=== PATIENT | female | born 1980 | race Caucasian/White ===

== ENCOUNTER → 2020-12-21 08:37 | Outpatient (CLI) | payer OTHER, SELFPAY ==
[2020-12-21 11:06] LABS: HCG,Quantitative 100290 mIU/ml (0-5.42)
== END ==
PROVIDERS: Visit Provider Nurse Practitioner Obstetrics & Gynecology
DX: Z34.90 Encounter for supervision of normal pregnancy, unspecified, unspecified trimester (principal)
CPT/HCPCS: 36415; 84702

== ENCOUNTER → 2020-12-24 12:12 | Outpatient (CLI) | payer OTHER, SELFPAY ==
--- NOTE | 2020-12-24 12:43 | US_ITS ---
PROCEDURE: US OB <= 14 WEEKS FETUS CLINICAL INDICATION: US OB DATES COMPARISON: No exams were available for comparison FINDINGS: An intrauterine gestational sac is present with a pole with a crown-rump length of 1.14cm correlating to gestational age of 7weeks 3days. heart tones are present with an FHR of 151bpm. Yolk sac is noted. Along the left aspect of the gestational sac there is a small area of decreased echogenicity at approximately 1 cm and could be due to a small subchorionic hemorrhage. Along the posterior aspect of the uterus there is a 19 mm area of decreased echogenicity and may be due to the small fibroid. Additional small hypoechoic area noted along the lower body of the anterior aspect of the uterus measuring 10 mm and may be due to small fibroid. There is a 2.8 cm right ovarian cyst IMPRESSION: Live IUP at 7 weeks 3 days. Estimated due date by Ultrasound is 08/09/2021 Possible small area of subchorionic hemorrhage with other nonacute findings as described above. Follow-up may confirm stability. Dictated by: Jeremie Muir MD 12/24/2020 16:15 Jeremie Muir MD in [place] 12/24/2020 16:15
[2020-12-24 12:52] LABS: Basophils % 0.3 % (0.1-2.0); Eosinophils % 0.3 % (0.1-12.0); Hematocrit 39.5 % (37.0-47.0); Hemoglobin 13.4 g/dL (12.2-16.2); Lymphocytes # 1.8 K/mm3 (0.7-4.5); Lymphocytes % 19.6 % (10-50); Mean Corpuscular HGB Conc 33.8 g/dL (31.8-35.4); Mean Corpuscular Hemoglobin 30.3 pg (27.0-31.2); Mean Corpuscular Volume 89.6 fl (81-99); Mean Platelet Volume 8.1 fl (7.4-10.4); Monocytes # 0.6 K/mm3 (0.1-1.0); Neutrophils # 6.8 K/mm3 (1.8-7.8); Neutrophils % 73.7 % (37.0-80.0); Platelet Count 290 K/mm3 (142-424); Red Blood Count 4.41 M/mm3 (4.20-5.40); Red Cell Distribution Width 13.6 % (11.5-17.5); White Blood Count 9.2 K/mm3 (4.8-10.8)
[2020-12-26 12:49] LABS: HIV Screen 4th Generation wRfx Non Reactive (Non Reactive); Rubella Antibodies, IgG 9.14 index (Immune >0.99)
[2020-12-26 12:50] LABS: Hepatitis B Surface Antigen Negative (Negative); Hepatitis C Antibody <0.1 s/co ratio (0.0-0.9); Rapid Plasma Reagin Ab Titer Non Reactive (NonRea<1:1)
== END ==
PROVIDERS: PCP Internal Medicine; Visit Provider Nurse Practitioner Obstetrics & Gynecology
DX: Z34.90 Encounter for supervision of normal pregnancy, unspecified, unspecified trimester (principal); O26.841 Uterine size-date discrepancy, first trimester
CPT/HCPCS: 36415; 76801; 85025; 86592; 86703; 86762; 86850; 87340; 87380; G0432

== ENCOUNTER → 2021-01-23 09:05 | Outpatient (CLI) | payer OTHER, SELFPAY | PROVIDERS: Visit Provider Nurse Practitioner Obstetrics & Gynecology | DX: Z31.430 Encounter of female for testing for genetic disease carrier status for procreative management (principal); Z36.0 Encounter for antenatal screening for chromosomal anomalies; Q28.3 Other malformations of cerebral vessels | CPT/HCPCS: 36415 ==

== ENCOUNTER → 2021-03-25 08:46 | Outpatient (CLI) | payer OTHER, SELFPAY ==
--- NOTE | 2021-03-25 08:57 | US_ITS ---
PROCEDURE: US OB /MATERNAL DETAIL CLINICAL INDICATION: 20 week gestation Anatomy exam COMPARISON: US US OB <= 14 WEEKS FETUS from 12/24/2020 FINDINGS: There is a single live fetus present which is in breech presentation. The cervix is closed measuring 4 cm. heart and body motion noted. The placenta is posterior with an anterior accessory and grade 1. Complete survey performed and was unremarkable on the submitted images as in PACS. No discrete anomalies identified on survey imaging by technologist. Active fetus. Three-vessel cord with satisfactory umbilical cord insertion. 4- chamber heart noted. Survey of brain & ventricles Unremarkable. Face and neck survey unremarkable. Diaphragm and chest views unremarkable. Abdomen: Both kidneys noted and unremarkable. Stomach noted and satisfactory. Spine: Survey of the spine satisfactory with no anomalies identified nor imaged. Both arms and legs noted. Amniotic Fluid: Adequate. Maternal adnexa: No significant findings. Measurements: Average ultrasound age 20weeks 2days. Gestational Age 20weeks 2days Estimated due date by ultrasound age 1208/10/2021. Estimated weight 352g BPD = 20weeks 1day OFD = 20weeks 1day HC = 19weeks 3days AC = 20weeks 3days FL = 20weeks 6days Growth Percentile= 44% Heart Rate = 149bpm Cerebellum = 20weeks 2days Humerus = 20weeks 3days HC/AC is 1.1 CI is 0.79 FL/BPD is 0.73 FL/AC is 0.22 IMPRESSION: Live IUP with an average ultrasound age of 20 weeks 2 days. Breech position. No obvious anomalies. Please see above for detail. Dictated by: Jeremie Muir MD 03/25/2021 15:30 Jeremie Muir MD in OV 03/25/2021 15:30
== END ==
PROVIDERS: PCP Internal Medicine; Visit Provider Nurse Practitioner Obstetrics & Gynecology
DX: Z34.90 Encounter for supervision of normal pregnancy, unspecified, unspecified trimester (principal); Z3A.20 20 weeks gestation of pregnancy
CPT/HCPCS: 76811

== ENCOUNTER → 2021-04-24 08:20 | Outpatient (CLI) | payer OTHER, SELFPAY ==
[2021-04-24 08:58] LABS: Glucose,Fasting 94 mg/dl (74-100)
[2021-04-24 10:33] LABS: Glucose 1 Hour 174 mg/dL (74-100)
== END ==
PROVIDERS: Visit Provider Nurse Practitioner Obstetrics & Gynecology
DX: Z34.90 Encounter for supervision of normal pregnancy, unspecified, unspecified trimester (principal)
CPT/HCPCS: 36415; 82951

== ENCOUNTER → 2021-05-10 09:56 | Outpatient (CLI) | payer SELFPAY ==
[2021-05-10 10:43] LABS: Glucose,Fasting 89 mg/dl (74-100)
[2021-05-10 12:03] LABS: Glucose 1 Hour 110 mg/dL (74-100)
[2021-05-10 13:37] LABS: Glucose 2 Hour 215 mg/dL (74-100)
[2021-05-10 14:35] LABS: Glucose 3 Hour 152 mg/dL (74-100)
== END ==
PROVIDERS: Visit Provider Nurse Practitioner Obstetrics & Gynecology
DX: Z34.90 Encounter for supervision of normal pregnancy, unspecified, unspecified trimester (principal)
CPT/HCPCS: 36415; 82951

== ENCOUNTER → 2021-07-09 18:29 | Outpatient (CLI) | payer OTHER, SELFPAY | PROVIDERS: Visit Provider Nurse Practitioner Obstetrics & Gynecology | DX: Z34.90 Encounter for supervision of normal pregnancy, unspecified, unspecified trimester (principal) | CPT/HCPCS: 86403 ==

== ENCOUNTER → 2021-07-26 12:32 | Outpatient (CLI) | payer OTHER, SELFPAY | PROVIDERS: Visit Provider Nurse Practitioner Obstetrics & Gynecology | DX: Z01.812 Encounter for preprocedural laboratory examination (principal); Z20.822 Contact with and (suspected) exposure to COVID-19 | CPT/HCPCS: C9803; U0003; U0005 ==

== ENCOUNTER 2021-07-27 17:11 | Inpatient (IN) | payer OTHER, SELFPAY ==
[2021-07-27 17:18] VITALS: BMI 35.7
[2021-07-27 17:20] VITALS: BP 146/73; PULSE 97; RESP 18; TEMP 36.6; O2SAT 99
[2021-07-27 17:36] LABS: Microscopic, Urine URINE MICROSCOPIC (MICROSCOPIC)
[2021-07-27 18:04] LABS: Coronavirus 19, PCR Not Detected (NotDetected); Influenza A, PCR Not Detected (NotDetected); Influenza B, PCR Not Detected (NotDetected)
[2021-07-27 18:05] LABS: Basophils # 0.1 K/mm3 (0-0.2); Basophils % 0.7 % (0.1-2.0); Eosinophils # 0.1 K/mm3 (0.0-0.4); Hematocrit 33.7 % (37.0-47.0); Hemoglobin 11.6 g/dL (12.2-16.2); Lymphocytes # 2.1 K/mm3 (0.7-4.5); Lymphocytes % 26.7 % (10-50); Mean Corpuscular HGB Conc 34.4 g/dL (31.8-35.4); Mean Corpuscular Hemoglobin 31.3 pg (27.0-31.2); Mean Corpuscular Volume 90.9 fl (81-99); Mean Platelet Volume 9.1 fl (7.4-10.4); Monocytes # 0.6 K/mm3 (0.1-1.0); Monocytes % 7.6 % (1.7-9.3); Platelet Count 197 K/mm3 (142-424); Red Blood Count 3.71 M/mm3 (4.20-5.40); Red Cell Distribution Width 14.6 % (11.5-17.5); White Blood Count 7.9 K/mm3 (4.8-10.8)
[2021-07-27 18:10] LABS: Anion Gap 10.8 mEq/L (5-15); Blood Urea Nitrogen 11 mg/dl (7-17); Calcium 9.4 mg/dl (8.4-10.2); Carbon Dioxide 21 mmol/L (22.0-30.0); Chloride 105 mmol/L (98-107); Creatinine Clearance Estimated 147 mL/min (50-200); Estimated Glomerular Filt Rate 80 ml/min (>60); GFR (African American) 97 ML/MIN (>60); Glucose 77 mg/dl (74-100); Potassium 3.8 mmoL/L (3.5-5.1); Sodium 133 mmol/L (136-145)
[2021-07-27 18:38] VITALS: BP 146/73; PULSE 97; RESP 18; TEMP 36.6; O2SAT 99; BMI 35.7
[2021-07-27 18:40] LABS: Appearance,Urine CLOUDY (Clear); Bilirubin,Urine Negative (Negative); Blood, Urine Negative (Negative); Color,Urine YELLOW (Yellow); Glucose,Urine (UA) Negative (Negative); Ketones,Urine Negative (Negative); Leukocyte Esterase,Urine 1+ (Negative); Nitrate,Urine Negative (Negative); Protein,Urine Negative (Negative); Urobilinogen,Urine 0.2 EU/dl (0.2)
[2021-07-27 18:47] LABS: Amorphous Sediment,Urine 2+ /lpf; Squamous Epithelial Cell,Urine 50-100 #/hpf (0-5); WBC,Urine Occasional #/hpf (0-3)
[2021-07-27 18:51] LABS: Barbiturates Screen,Urine Negative ng/ml (<200); Benzodiazepines Screen,Urine Negative ng/ml (<200)
[2021-07-27 18:52] LABS: Amphetamine/Metha Screen,Urine Negative ng/ml (<1000)
[2021-07-27 18:53] LABS: Cannabinoid Screen,Urine Negative ng/ml (<50); Cocaine Screen,Urine Negative ng/ml (<300)
[2021-07-27 18:54] LABS: Methadone Screen,Urine Negative ng/ml (<300); Opiate Screen,Urine Negative ng/ml (<300)
[2021-07-27 18:55] LABS: Phencyclidine Screen,Urine Negative ng/ml (<25)
[2021-07-27 20:17] VITALS: BP 116/68; PULSE 90; RESP 18; TEMP 37; O2SAT 97
[2021-07-28] VITALS (14 sets, daily range): BP systolic 116–150; BP diastolic 62–88; PULSE 72–98; RESP 14–20; TEMP 36.4–36.8; O2SAT 96–100
--- NOTE | 2021-07-28 08:48 | HMH.OBAPHP ---
OB - H&P: HPI Antepartum - History of Present Illness Chief complaint: Gestational diabetes, advanced maternal age History of present illness: She is a 40-year-old 1 para 0 at 38+5 weeks gestational age. She has been followed for gestational diabetes and has been seen at [facility]. It was recommended by them that she deliver at 38 weeks. As result of that we have brought her in for induction of labor at term. - History of Present Criteria for establishing EDC:: LMP confirmed by 1st trimester US care: good care Ultrasounds: normal 1st trimester US, normal mid trimester US Obstetrical complications: gestational diabetes, other [facility] History I have reviewed the patient's past medical history: Yes *Have you ever received a pneumonia vaccine?: No *Have you received a flu vaccine this season?: Yes Other Medical History: Reports: Arthritis Other Surgeries: Yes: Other. No: Amputation: No Fractures: No - *Social History Smoking Status: Never smoker Alcohol Intake: never Alcohol Intake Frequency:: other Substance Use Type: denies use *Occupational Status:: unemployed *Travel in the last 8 weeks: None Family Hx:: No significant family history Para: 0 Review of Systems - Review of Systems Review of systems:: pertinent systems reviewed and negative unless documented below Meds Home Medications Medication Instructions Recorded Confirmed Type docosahexaenoic acid 200 mg capsule 200 mg PO DAILY 12/24/20 07/28/21 History polyethylene glycol 3350 17 gram 17 g PO DAILY 12/24/20 07/28/21 History oral powder packet prenat.vits,paige,[id number] 1 tab PO DAILY 12/24/20 07/28/21 History magnesium 250 mg tablet 250 mg PO DAILY 06/17/21 07/28/21 History Iron Polysaccharide Complex [Pro 180 mg PO BID 07/28/21 07/28/21 History Fe] Allergies Allergy/AdvReac Type Severity Reaction Status Date / Time shellfish derived Allergy Unknown Verified 07/24/21 09:28 OB - H&P: Exam - Physical Exam Vital signs: Temp Pulse Resp BP Pulse Ox 98.6 F 90 18 116/68 97 07/27/21 20:17 07/27/21 20:17 07/27/21 20:17 07/27/21 20:17 07/27/21 20:17 - Constitutional no acute distress - Routine HEENT Exam Head: Present: normocephalic Eye: Present: EOMI, PERRL ENT: Present: mucous membranes moist - Routine Neck Exam Present: supple, full ROM - Routine Respiratory Exam Absent: accessory muscle use (good air entry bilaterally), respiratory distress, wheezes, crackles - Routine Cardiovascular Exam Present: RRR. Absent: murmur - Routine Abdominal Exam Present: soft, normoactive bowel sounds. Absent: tenderness, distended, guarding - Routine Rectal Exam Patient deferred: visual exam, digital exam - Routine Exam Patient deferred: external exam, groin exam, perineal exam - Routine Extremities Exam Present: full ROM. Absent: cyanosis, edema - Routine Skin Exam Present: intact. Absent: cyanosis - Routine Neurological Exam Present: alert, oriented X3 - Routine Psychiatric Exam Present: normal affect OB - Results - Labs Labs: Short CBC 07/27/21 Range/Units 17:31 WBC 7.9 (4.8-10.8) K/mm3 Hgb 11.6 L (12.2-16.2) g/dL Hct 33.7 L (37.0-47.0) % Plt Count 197 (142-424) K/mm3 BMP 07/27/21 17:31 Sodium 133 L Potassium 3.8 Chloride 105 Carbon Dioxide 21 L BUN 11 Creatinine 0.80 Glucose 77 Calcium 9.4 Urine 07/27/21 Range/Units 17:20 Urine Color Yellow (Yellow) Urine Appearance Cloudy (Clear) Urine pH 7.0 (5.0-8.5) Ur Specific [place] 1.020 (1.005-1.030) Urine Protein Negative (Negative) Urine Glucose (UA) Negative (Negative) OB - A/P Antepartum (1) Advanced maternal age affecting , antepartum Status: Acute - Additional Plan Planning to breastfeed?: Yes Plan: induction Additional Information:: She is admitted for induction of labor. She goodman
--- NOTE | 2021-07-28 08:52 | HMH.LABNOT ---
Labor Note - Subjective: Date: 07/28/21 Time: 08:52 regular contraction - Objective: NST:: Reactive Contractions:: every 2-3 minutes Cervical Dilation:: 1 Effacement:: 0% Station: -4 Membranes: intact - Fetus: Monitoring?: Yes monitoring type:: External - Assessment: Labor progressing?: No Cephalopelvic disproportion?: Yes Patient Problems: All Active Problems Advanced maternal age affecting , antepartum (Acute) Gestational diabetes mellitus (GDM) (Acute) (Acute) - Plan: Anesthesia for epidural?: No Continue to labor down?: Yes Plan for ?: Yes Continue to monitor?: Yes Comment:: Her cervix is completely uneffaced. It is closed. The baby's head is not in the pelvis. I spoke to her about and we will see how she does over the next few hours but I suspect that we will end up with a since the head is not engaged in the cervix is not changing despite having contractions. She had Cervidil overnight and this did not open her cervix or soften it.
--- NOTE | 2021-07-28 08:57 | P.PN_ITS ---
[facility] Anesthesia Checklist - Patient Identification Patient Identification: Arm Band, Verbal (Name & ) - Structural Data Admitted From: Inpatient Planned Operative Procedure/s: Consent for Planned Operative Procedure(s) Verified: Yes Verified Documents: Surgical Consent - Chart Verification Results Verified: CBC - Cardiovascular Assessment Heart Sounds: S1 & S2 - Airway Assessment C-Spine Mobility Assessed: Yes TMJ Mobility Assessed: Yes Dentition: Good Dentition - Neurological Assessment Level of Consciousness: Awake, Alert, Appropriate - Anesthesia Plan ASA Class: II Anesthesia Type: Spinal [facility] History *Have you ever received a pneumonia vaccine?: No *Have you received a flu vaccine this season?: Yes Other Medical History: Reports: Arthritis Anesthesia experience/problems:: none Other Surgeries: Yes: Other. No: Amputation: No Fractures: No - *Social History Smoking Status: Never smoker Alcohol Intake: never Alcohol Intake Frequency:: other Substance Use Type: denies use *Occupational Status:: unemployed *Travel in the last 8 weeks: None Family Hx:: No significant family history Para: 0
--- NOTE | 2021-07-28 13:06 | HMH.ACPN2 ---
Internal Medicine - PN: Subj *Date: 07/28/21 *Time: 13:06 Interval history: She has not had that many contractions over the morning. She had no change in her cervix early on this morning. We will go ahead with a . Exam Vital signs and Labs for Last 24 Hours: Temp Pulse Resp BP Pulse Ox 98.6 F 90 18 116/68 97 07/27/21 20:17 07/27/21 20:17 07/27/21 20:17 07/27/21 20:17 07/27/21 20:17 Laboratory Results - last 24 hr 07/27/21 17:20: Urine Color Yellow, Urine Appearance Cloudy, Urine pH 7.0, Ur Specific [place] 1.020, Urine Protein Negative, Urine Glucose (UA) Negative, Urine Ketones Negative, Urine Blood Negative, Urine Nitrate Negative, Urine Bilirubin Negative, Urine Urobilinogen 0.2, Ur Leukocyte Esterase 1+ A, Urine WBC Occasional, Ur Squamous Epith Cells 50-100, Amorphous Sediment 2+ 07/27/21 17:20: Urine Opiates Screen Negative, Urine Methadone Screen Negative, Ur Barbituates Screen Negative, Ur Phencyclidine Scrn Negative, Ur Amphetamines Screen Negative, U Benzodiazepines Scrn Negative, Urine Cocaine Screen Negative, U Marijuana (THC) Screen Negative 07/27/21 17:31: WBC 7.9, RBC 3.71 L, Hgb 11.6 L, Hct 33.7 L, MCV 90.9, MCH 31.3 H, MCHC 34.4, RDW 14.6, Plt Count 197, MPV 9.1, Neut % (Auto) 64.0, Lymph % (Auto) 26.7, [place] % (Auto) 7.6, Eos % (Auto) 1.0, Baso % (Auto) 0.7, Neut # (Auto) 5.0, Lymph # (Auto) 2.1, [place] # (Auto) 0.6, Eos # (Auto) 0.1, Baso # (Auto) 0.1 07/27/21 17:31: Sodium 133 L, Potassium 3.8, Chloride 105, Carbon Dioxide 21 L, Anion Gap 10.8, BUN 11, Creatinine 0.80, Estimated Creat Clear 147, Estimated GFR 80, Est GFR ( Amer) 97, Glucose 77, Calcium 9.4 07/27/21 17:31: Blood Type A Positive, Antibody Screen Negative 07/27/21 17:33: SARS-CoV-2 (PCR) Not detected, Influenza A Untype (PCR) Not detected, Influenza Type B (PCR) Not detected I & O for Last 24 hours: Intake & Output 07/26/21 07/27/21 07/28/21 07/29/21 11:59 11:59 11:59 11:59 Weight 215 lb - Constitutional no acute distress - *Routine HEENT Exam Head: Present: normocephalic Eye: Present: EOMI, PERRL ENT: Present: mucous membranes moist Assessment and Plan (1) Advanced maternal age affecting , antepartum Status: Acute Category: Medical (2) pelvic disproportion delivered Status: Acute Category: Medical Code(s): O33.9 - Maternal care for disproportion, unspecified - Assessment and plan all Dx Assessment and Plan for all problems:: We will go ahead with a primary lower segment transverse section. We discussed the risks of surgery that includes bleeding, infection, injuries to the bowel and bladder. We discussed the rare risk of DVT. All questions were answered and consents were signed.
--- NOTE | 2021-07-28 14:18 | HMH.OPNOTE ---
Date of procedure: 07/28/21 Pre-op Diagnosis:: Term , gestational diabetes, pelvic disproportion, advanced maternal age Post-op Diagnosis:: Term , gestational diabetes, advanced maternal age, pelvic disproportion Procedure performed:: Primary lower segment transverse section, B. Cheung suture Surgeon:: Amrik Mendiola MD Electronics System Mechanic(s):: Gracy Mayo MUSIC THERAPY SPECIALIST:: Bobby Simon Anesthesia: spinal Estimated blood loss (mL): 600 Clinical Note:: She is a 40-year-old 1 para 0 at 38 and 5 weeks gestational age. She has gestational diabetes and was recommended by maternal- medicine that she believes delivered at 38 weeks. She also has advanced maternal age. We had started her on Cervidil and really her cervix had not changed. The baby's head was extremely high and was not engaged in the pelvis. Despite Cervidil and oxytocin there was no change in the cervix. As a result of that we elected perform a primary lower segment transverse section. The risks and benefits of surgery were discussed with the patient prior to surgery. Operative findings:: She delivered a liveborn male child at 1:36 PM in the afternoon of July 28, 2021. The baby had Apgars of 8 at 1 minute and 9 at 5 minutes. Ovaries and tubes appeared normal. There was a loose nuchal cord. The uterus itself was quite boggy post surgery. Operative note:: She was taken to the operating room where spinal anesthesia was found be adequate. She was prepped and draped in normal sterile fashion in the supine position with a leftward tilt. A Nur catheter was in the bladder. A Pfannenstiel skin incision was made with knife then carried through to the underlying layer of fascia with cautery. The fascia was opened in the midline with cautery and extended laterally using Grove scissors. [place] clamps were applied to the superior aspect of the fascial incision which was tented up and the underlying rectus muscles dissected off using cautery. The [place] clamps were then applied to the inferior aspect of the fascial incision which in a similar fashion was tented up and the underlying rectus muscles dissected off using cautery. The rectus muscles were then in the midline, the peritoneum identified, and entered sharply with Metzenbaum scissors. This incision was then extended superiorly and inferiorly with cautery. We had good visualization of the bladder inferiorly. We inserted an French retractor. The bladder peritoneum was then opened in the midline and extended laterally using Metzenbaum scissors. A bladder flap was created digitally. Transverse incision was made through the uterine muscle to the amnion. This incision was then extended laterally using fingers traction. The amnion was entered sharply with knife. There was clear amniotic fluid. The 's head was then delivered atraumatically. A loose nuchal cord was then reduced. This was followed by the anterior shoulder and the rest of the 's body atraumatically. The oropharynx and nasopharynx were bulb suctioned. The was then handed off to Dr. Reddy who assigned Apgars of 8 at 1 minute and 9 at 5 minutes. We then obtained cord blood. Using gentle traction on the cord and countertraction on the fundus I was able to easily deliver the placenta intact. It had a normal three-vessel cord. The uterus was then cleared of clots and debris . The uterine incision was then closed using running 0 Vicryl suture in a locked fashion. A second layer of the same suture was used to imbricate the first layer. The bladder peritoneum was then closed using running 2-0 Vicryl suture in a locked fashion. The gutters and cul-de-sac were then cleared of clots and debris . Once again hemostasis was assured. The uterus was quite boggy so I elected to place a B. Cheung suture. Using #1 Vicryl on a large needle I took a large bite through the muscle anteriorly. I then went over the top of the ut
--- NOTE | 2021-07-28 14:27 | HMH.ANESI ---
[facility] Anesthesia Record Part I Intake, IV Amount: 2,000 Estimated blood loss (mL): 600 Urine output (mL): 200 Blood Pressure: 132/80 SaO2: 96 Pulse Rate: 84 Respiratory Rate: 16 Temperature: 97.7 F Patient is:: Awake, Stable Stable to PACU at:: 14:20
[2021-07-28 14:41] LABS: POC Glucose,Bedside 83 (70-110)
--- NOTE | 2021-07-28 15:05 | SUR.PHASEI ---
1449- detailed report called to pilar morales on OB floor. Rn notified of all the protocols that had been started for QBL >1000. Left forearm 18g Iv started, PRBC's on hold, and dr joseph notified. Dr joseph ordered oxytocin to be given 12hrs instead of 6 on the floor. Sabina notified of this.
--- NOTE | 2021-07-28 15:15 | SUR.OPER ---
1424 Dr. Mendiola notified of QBL greater than 1000mL. QBL protocol initiated. IV oxytocin for 12hrs instead of normal [address] Mendiola.
[2021-07-28 15:20] LABS: Microscopic,Cath URINE MICROSCOPIC (MICROSCOPIC)
[2021-07-28 15:52] LABS: Appearance,Urine/Cath CLEAR (Clear); Bilirubin,Cath Negative (Negative); Blood, Urine/Cath Negative (Negative); Color,Urine/Cath YELLOW (Yellow); Glucose,Urine/Cath (UA) Negative (Negative); Ketones,Urine/Cath 1+ (Negative); Leukocyte Esterase,Cath Negative (Negative); Nitrate,Cath Negative (Negative); PH,Urine/Cath 7.5 (5.0-8.5); Protein,Urine/Cath Negative (Negative); Specific Gravity, Urine/Cath 1.015 (1.005-1.030); Urobilinogen,Cath 0.2 EU/dl (0.2)
[2021-07-28 16:04] LABS: RBC,Urine/Cath Occasional # /hpf (0-3)
[2021-07-29 00:03] VITALS: BP 117/61; PULSE 75; RESP 18; TEMP 36.7; O2SAT 98
[2021-07-29 04:30] VITALS: BP 109/57; PULSE 79; RESP 18; TEMP 36.6
[2021-07-29 06:46] LABS: Hematocrit 26.4 % (37.0-47.0); Hemoglobin 9.1 g/dL (12.2-16.2)
--- NOTE | 2021-07-29 07:54 | P.PN_ITS ---
[facility] Anesthesia Record Part II Discharge Time: 14:50 Destination: Obstetric PACU nurse assessment reviewed?: Yes Patient Condition:: Good Anesthesia Complications:: None Swallowing reflex intact?: Yes Cyanosis?: No Blood Pressure: 136/80 Pulse Rate: 87 Temperature: 97.5 F Mental Status: Alert & Oriented Pain level:: 0 Nausea and/or vomitting:: None Intake, IV Amount: 0
[2021-07-29 07:55] VITALS: BP 136/80; PULSE 87; TEMP 36.4
--- NOTE | 2021-07-30 10:02 | HMH.OBDCSM ---
General - General Admission date:: 07/27/21 Discharge date: 07/30/21 HPI - History of Present Illness History of present illness: She is a 40-year-old 1 now para 1 at 38+ weeks gestational age who has gestational diabetes and advanced maternal age. Hospital Course Hospital Course: She is a 40-year-old 1 para 0 at 38+ weeks gestational age. She was brought in for induction of labor. She was started on Cervidil overnight and really did not progress overnight. We then started her on IV oxytocin and there was no change in her cervix. The baby's head was not engaged. Her pelvis was extremely narrow. As result of that we elected to perform a primary lower segment transverse section. On July 28, 2021 she underwent a primary low segment transverse section and delivered a liveborn male child at 1:36 PM. Baby had Apgars of 8 at 1 minute and 9 at 5 minutes. She has done well and has remained afebrile throughout her hospitalization. She is eating and drinking and ambulating. She is breast-feeding. She has a positive blood, she is rubella immune and was group B streptococcus negative. Her business office coordinator is Dr. Reddy. She will be discharged home today to follow-up with me in approximately 2 weeks time. She will continue with her vitamins and iron. She was given a prescription for Percocet 5/325 number 20 tablets. She will continue with her Motrin and Tylenol as well. She was given the usual instructions with respect to limiting her activity, driving and sexual activity. She was given instructions with respect to wound care. Her condition on discharge is stable and improved. Rhogam Administration: Not Indicated Objective Vital signs: Temp Pulse Resp BP Pulse Ox 97.5 F L 87 18 136/80 98 07/29/21 07:55 07/29/21 07:55 07/29/21 04:30 07/29/21 07:55 07/29/21 00:03 no acute distress - *Routine HEENT Exam Head: Present: normocephalic Eye: Present: EOMI, PERRL ENT: Present: mucous membranes moist DS: Diagnosis - Discharge Diagnosis (1) Advanced maternal age affecting , antepartum Status: Acute (2) pelvic disproportion delivered Status: Acute Discharge Plan - Patient Discharge Instructions ACTIVITY: No heavy lifting DIET: continue same diet Additional Instructions: NOTHING IN VAGINA FOR 6 WEEKS NO HEAVY LIFTING OR STRENUOUS ACTIVITY NO DRIVING WHILE TAKING PAIN MEDICATION FOLLOW-UP WITH DR. VERAS ON Patient Instructions: Depression, Hemorrhage, DI for , DI for Pre-eclampsia, [facility] Post Discharge Instructions, Preventing the Spread of Coronavirus Discharge Instructions - Follow up Plan Disposition: Home, Self-Care Condition at discharge:: Stable Home Medications: Home Medications Medication Instructions Recorded Confirmed Type docosahexaenoic acid 200 mg capsule 200 mg PO DAILY 12/24/20 07/28/21 History polyethylene glycol 3350 17 gram 17 g PO DAILY 12/24/20 07/28/21 History oral powder packet prenat.vits,paige,csz-lohn-vmjbq 1 tab PO DAILY 12/24/20 07/28/21 History magnesium 250 mg tablet 250 mg PO DAILY 06/17/21 07/28/21 History Iron Polysaccharide Complex [Pro 180 mg PO BID 07/28/21 07/28/21 History Fe] Oxycodone HCl/Acetaminophen 1 tab PO Q4-6H PRN #20 tab 07/30/21 Rx [Percocet 5/325mg tablet] Prescriptions/Medication Reconciliation: New Oxycodone HCl/Acetaminophen [Percocet 5/325mg tablet] 1 tab PO Q4-6H PRN #20 tab PRN Reason: Severe Pain Continued prenat.vits,paige,[id number]-ptbj-[id number] 1 tab PO DAILY magnesium 250 mg tablet 250 mg PO DAILY docosahexaenoic acid 200 mg capsule 200 mg PO DAILY polyethylene glycol 3350 17 gram oral powder packet 17 g PO DAILY Iron Polysaccharide Complex [Pro Fe] 180 mg PO BID - Problem Reconciliation Problems Reviewed?: Yes
[2022-05-21 10:55] LABS: POC Glucose,Bedside 71 (70-110)
== END 2021-07-30 14:50 | disposition home or self-care (01) | DRG 788 ==
PROVIDERS: Admitting Provider Nurse Practitioner Obstetrics & Gynecology; PCP Internal Medicine; Visit Provider Nurse Practitioner Obstetrics & Gynecology
PROC: 10D00Z1 Extraction of Products of Conception, Low, Open Approach (ICD-10-PCS; CPT 59514; principal; 2021-07-28 12:15)
DX: O24.420 Gestational diabetes mellitus in childbirth, diet controlled (principal); Z3A.37 37 weeks gestation of pregnancy; Z37.0 Single live birth; O65.4 Obstructed labor due to fetopelvic disproportion, unspecified; O69.81X0 Labor and delivery complicated by cord around neck, without compression, not applicable or unspecified
CPT/HCPCS: 59514; 59025; 80048; 80305; 81001; 82962; 85014; 85018; 85025; 86850; 87086; 94761; C9290; C9803; G0283; J2405; U0003; U0005